=== PATIENT | female | born 1940 | race Caucasian/White ===

== ENCOUNTER 2019-09-21 19:10 | Inpatient (IN) | payer OTHER ==
[~2019-09-21] VITALS: Ht 172.7 cm; Wt 52.2 kg
[2019-09-21] MEDS ORDERED: NORVASC 2.5 MG2.5 M1 PO ×2 (21:55→22:16)
[2019-09-21] MEDS ORDERED: CARBIDOPA-LEVO1 EA10 PO (21:56)
[2019-09-21] MEDS ORDERED: CARBIDOPA-LEVO1 EAC7 PO (21:58)
[2019-09-21] MEDS ORDERED: LEVO-T25 MCG PO (21:59)
[2019-09-21] MEDS ORDERED: RYTARY ER 48.71 EACH PO (21:59)
[2019-09-21] MEDS ORDERED: SEROQUEL 25 MG25 MG PO (22:00)
[2019-09-21 22:44] VITALS: BP 153/92
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
[2019-09-22 08:17] VITALS: BP 176/105
[2019-09-22 09:29] VITALS: BP 176/105
[2019-09-22 11:44] VITALS: BP 176/105
--- NOTE | 2019-09-22 11:50 | NUR ---
This morning the patient was complaining about muscle spams and wanted to lay down in her bed and eat breakfast. I offered to feed her and she refused; Karina also refused her medications until was could lay down. See nursing notes for details. I spoke with Karina and her daughter. The daughter shared with me that when Karina has muscle spams, the best thing for her to do is to lay down. I explained our concern about her eating in bed and the possiblity of choking. I informed the patient and daughter that we are going to get special silverware for her to use to help with eating. I explained that she is hear to treament and needs to participate in groups. We agreed that Albino can lay down inbetween groups. We agreed to be gentle in the morning when getting her out of bed. The daughter will give us "hints" that she uses at home to help with the muscles spams. Dr. Jackson joined us and he supported the above. Please see orders and his notes for details.
--- NOTE | 2019-09-22 12:33 | NUR ---
ASSUMED CARE AT 0700. PATIENT IS ALERT AND ORIENTED X4. PATIENT SPEAKS GAMBIAN AND A SMALL AMOUNT OF PASHTO. LUNGS ARE CLEAR. ABD IS SOFT WITH BSX4. UP TO THE BSC TO VOID WITH ASSIST OF 1 STAFF . PATIENT C/O SPINAL SPASMS THIS AM AND REFUSED TO EAT BREAKFAST OR TAKE MEDS. PATIENT FINALLY AGREED TO TAKE HER AM MEDS. PATIENT WAS BROUGHT OUT TO THE DINING ROOM VIA W/C. DAUGHTER HERE TO SEE PATIENT. MEETING WITH FAMILY AND DIRECTOR CONCERNING HER BEHAVIOR TO WANT TO LIE DOWN ON THE FLOOR IF SHE HAS SPASMS IS UNACCEPTABLE. PATIENT WILL BE ALLOWED TO LIE DOWN IN HER BED. PATIENT UP IN W/C AND IN DINING ROOM FOR LUNCH. NEW SUPPLEMENT STARTED AT LUNCH TIME PER DR. JENKINS. ENCOURAGED PO FLUIDS.
--- NOTE | 2019-09-22 12:46 | NUR ---
VANNESSA called and spoke with pts' dght to completed the intake assessment and TP. Dght reported that her mom's halluciantions have been " exhausting" and while it is not culterally acceptable to sent her mom to a care center, she now sees why they are helpful. She stated that she would consider LTC placement if it was necessary. Pt lives in the home with her daughter and EDMUND. VANNESSA reported on the role of Sw and the expectations of the [facility]. VANNESSA provided her the code and the hours for visitation, and that she could not bring food to the unit. VANNESSA also suggested that she find a psychiatrist and mental health therapist for d/c . Dght stated that she would look for that. VANNESSA set up family meeting for 09/28 at 11:45am.
[2019-09-22 19:32] VITALS: BP 116/66
--- NOTE | 2019-09-22 20:57 | NUR ---
PATIENT GIVEN ATIVAN AND MORPHINE LAST AT 1999. PLACED COOL WASH CLOTH ON FOREHEAD FOR COMFORT. PATIENT STOPPED MOANING. CHECKED ON PATIENT FREQUENTLY. PATIENT KEPT SAYING EMMA. CALLED DAUGHTER EMMA TO LET HER KNOW PATIENT IS WANTING HER AT BEDSIDE. DAUGHTER THANKED ME AND IS ON HER WAY UP. KEEPING CLOSE MICHELE ON PATIENT AND KEEPING HER COMFORTABLE.
[2019-09-22 22:00] VITALS: BP 116/66
--- NOTE | 2019-09-22 23:52 | NUR ---
MOVED PATIENT TO 523A TONIGHT. DAUGHTER HAD REQUESTED PRIVATE ROOM FOR PATIENT AND PATIENT ROOM MATE WAS PLACED ON PALLITIVE CARE. PATIENT VERY UNSTEADY ON HER FEET AFTER 1999 TONIGHT. PARKINSON MEDS GIVEN TO HER AT HS. PATIENT KEEPS WATER BY HER BED TO SIP ON THRU NIGHT. SHE IS VERY HAPPY TO HAVE A ROOM BY HERSELF. BSC BESIDE BED. PATIENT STATES SHE HAD A BM TODAY. SHE DENIES PAIN. SHE IS SLEEPING SOUNDLY AT THIS TIME. BED IN LOW POSITION AND BED ALARM ON. STILL NEED TO COLLECT URINE TO RUN UA. WILL CONTINUE TO MONITOR.
--- NOTE | 2019-09-23 05:25 | NUR ---
PATIENT GOT UP AND CAME TO NURSE'S STATION TO FIND OUT WHAT TIME IT WAS. WALKED PATIENT BACK TO ROOM AND ASSISTED HER TO THE BATHROOM. URINE WAS COLLECTED AT 0510 FOR UA CHECK. SPECIMAN TAKEN TO THE LAB BY THIS NURSE. PATIENT BACK TO BED.
[2019-09-23 06:16] LABS: URINE BILIRUBIN NEGATIVE (Negative); URINE BLOOD NEGATIVE (Negative); URINE CLARITY CLEAR; URINE COLOR YELLOW; URINE GLUCOSE-RANDOM* NEGATIVE (Negative); URINE KETONES NEGATIVE (Negative); URINE LEUKOCYTES-REFLEX NEGATIVE (Negative); URINE NITRITE-REFLEX NEGATIVE (Negative); URINE PROTEIN (DIPSTICK) NEGATIVE (Negative); URINE SPECIFIC GRAVITY >= 1.030 (1.005-1.035); URINE UROBILINOGEN 0.2 E.U./dl (0.2-1.0)
[2019-09-23 09:18] VITALS: BP 127/66
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
--- NOTE | 2019-09-23 13:38 | NUR ---
SW completed a chart review and pt seems to be making gains in mood and behavior. She was seen in the milieu eating today. D/C is expected next week , still evaluating if placement will be necessary.
--- NOTE | 2019-09-23 17:39 | NUR ---
Ambulating around unit with irregular but steady gait. No s/o distress. Alert and orientated X2, language/hearing sometimes a barrier. Denies pain, SI/HI. Breath sounds clear t/o, bilaterally equal. Reg HR auscultated. Color pink with brisk capillary refill and palpable peripheral pulses. Voids independently. Active bowel sounds over soft, flat abdomen. No issues t/o day. Compliant with meds. Requesting book to read. No s/o distress.
[2019-09-23 19:23] VITALS: BP 136/68
--- NOTE | 2019-09-24 03:52 | NUR ---
Pt calm et cooperative this shift. Pt isolating in room most of shift. Pt took meds whole without difficulty. Pt does not frequently socialize with peers due to hearing et language difficulties. All health assessments WNL. No behaviors noted this shift. Pt currently resting in bed with eyes closed. Will continue to monitor per protocol.
[2019-09-24 10:43] VITALS: BP 145/76
--- NOTE | 2019-09-24 11:05 | NUR ---
0645 RESUMMED CARE FROM OVERNIGHT SHIFT, PATIENT UP IN DAY ROOM ATE BREAKFAST TOOK MEDICATION WITHOUT INCIDENCE. PATIENT USES WHEEL CHAIR DUE TO UNSTEADY GAIT. PATIENT DENIES ANY HALLUCINATIONS AT PRESENT, PATIENT SPEAKS SOME SAMI AND UNDERSTANDS SIMPLE COMMANDS. PATIENT CAN USE BESIDE COMMODE WITHOUT ASSISTANCE. WILL CONTINUE TO MONITOR PATIENT FOR BEHAVIORS AND SAFETY.
[2019-09-24 19:59] VITALS: BP 103/63
--- NOTE | 2019-09-25 02:04 | NUR ---
ASSUMED CARE OF PT FROM DAY SHIFT PT WALKING FROM BATHROOM GAIT UNSTEADY, BSC NEXT TO BED, PT VOIDING. PT ANSWERED SIMPLE QUESTION YES AND NO. PO MEDICATON TAKEN WITH SNACK, TOLERATED WELL.FREQ CHECK PER UNIT PROTOCOL. PT APPEARS TO BE RESTING BUT UP TO BSC FREQ TO VOID. CALM COOPERATIVE THIS SHIFT, WILL REPORT CHANGES OR ABNORMAL FINDINGS.
[2019-09-25 08:20] VITALS: BP 151/84
--- NOTE | 2019-09-25 10:17 | NUR ---
Sitting on commode. States her back hurts as she holds her right flank area and ranks it a 2-3 when asked. Alert and orientated X4, denies SI/HI. Ambulates at times with irregular, steady gait. Other times she states she feels weak and requests WC. Independent with eating breakfast and compliant with meds. Breath sounds clear t/o, bilaterally equal. Reg HR auscultated. Color pink with brisk capillary refill and palpable peripheral pulses. No edema noted. Urinating frequently, clean catch urine obtained with hat. Active bowel sounds over soft, flat abdomen. Dr. Jackson notified of flank pain, urinary frequency. UA and BMP ordered and obtained.
[2019-09-25 10:18] LABS: URINE BILIRUBIN NEGATIVE (Negative); URINE BLOOD NEGATIVE (Negative); URINE CLARITY CLEAR; URINE COLOR YELLOW; URINE GLUCOSE-RANDOM* NEGATIVE (Negative); URINE KETONES NEGATIVE (Negative); URINE LEUKOCYTES-REFLEX NEGATIVE (Negative); URINE NITRITE-REFLEX NEGATIVE (Negative); URINE PROTEIN (DIPSTICK) NEGATIVE (Negative); URINE UROBILINOGEN 0.2 E.U./dl (0.2-1.0)
[2019-09-25 10:23] LABS: CALCIUM 9.2 mg/dL (8.5-10.1); CREATININE 0.7 mg/dL (0.6-1.0); POTASSIUM 3.8 mmol/L (3.5-5.1)
[2019-09-25 11:01] VITALS: BP 124/63
[2019-09-25 19:23] VITALS: BP 145/84
--- NOTE | 2019-09-26 02:22 | NUR ---
ASSUMED CARE FROM DAY SHIFT PT RESTING IN BED, NO CONCERNS VOICED , UP TO BSC VOIDING, PO MEDICATION WITHOUT ISSUES, ATE HS SNACK TOLERATED WELL. GAIT STEADY WHEN UP TO BSC. PT RESTING QUIETLY THROUGHOUT FREQ ROUNDING. BED ALARM ON FOR SAFETY. WILL CONINTUE WITH CURRENT PLAN OF CARE, AND WILL REPORT CHANGES OR ABNORMAL FINDINGS.
[2019-09-26 07:49] VITALS: BP 144/81
--- NOTE | 2019-09-26 07:55 | NUR ---
ASSUMED CARE OF PT AT 0715. PT IS ALERT. UNABLE TO ASSESS ORIENTEDNESS. PT DOES NOT ANSWER QUESTIONS WHEN ASKED, BUT FOLLOWS COMMANDS. FALL PRECAUTIONS & FREQUENT MONITORING CONTINUED THIS SHIFT. PT IS STABLE. IS CURRENTLY SITTING IN DINNING ROOM AWAITING BREAKFAST. LABS & VITALS REVIEWED. WILL CONTINUE TO MONITOR.
[2019-09-26 19:39] VITALS: BP 162/92
--- NOTE | 2019-09-27 03:22 | NUR ---
Assumed care of pt @ 1900. Pt took meds whole without difficulty. Pt ambulates halls ad elizabeth with slightly unsteady gait. Pt currently on fall precautions. VSWNL. No behaviors noted this shift. Pt awakened during the night yelling out for "Mama". Pt was hard to awaken, but eventually calmed down and is currently resting in bed with eyes closed. Will continue to monitor per protocol.
[2019-09-27 07:58] VITALS: BP 177/91
[2019-09-27 08:10] VITALS: BP 148/84
--- NOTE | 2019-09-27 08:25 | NUR ---
VANNESSA completed a chart review and a note left by jill HURD that pt's dght might be seeking placement. VANNESSA called dght but she is a clinic procedure today and will be coming in for a family meeting tomorrow at 11:45am. Per notes VANNESSA will identify and set up an oupt appt with her neurologist, and rehab if needed.
--- NOTE | 2019-09-27 12:37 | NUR ---
SW left another Vm reporting that d/c will be tomorrow, and that a neurologist and psych appts need to be set up. VANNESSA also asked about the services they receive from whole persons and that there is still a family meeting on Friday at 11:45am. pt does not qualify for rehab, and does not have insurance for HH.
--- NOTE | 2019-09-27 13:47 | NUR ---
Pt has a neurology appt with Dr Tonia Lewis at [facility] on 11/30/19. [phone]. (f) [phone]. Pt does not have a psychiatrist. Will provide a referral to Dr Wooten if needed. [phone].
--- NOTE | 2019-09-27 15:46 | NUR ---
ASSUMED PT CARE AT 0715. ALERT TO SELF AND SURROUNDING. TRANSFERS WITH UNSTEADY GAIT. USING W/C. HAS HAD NO BEHAVIORS NOTED TODAY. REFUSED TO GO TO BREAKFAST THIS AM. WILL CONT POC.
--- NOTE | 2019-09-27 16:32 | NUR ---
VANNESSA met with pts' dght and confirmed the d/c for tomorrow at noon. Meds to be called into [facility] on [address] Pt has an appt with Dr Lewis 11/30/19 at 2pm. [phone]. Sw will fax d/c orders and summary to [phone]. SW also started referral for Dr Haji. [facility] [address] [phone]
[2019-09-27 16:36] VITALS: BP 148/84
[2019-09-27 19:40] VITALS: BP 109/61
--- NOTE | 2019-09-28 04:12 | NUR ---
Assumed care of pt @ 1900. Pt calm et cooperative this shift. Pt ambulates halls ad elizabeth but currently presents with weakened et unsteady gait. VSWNL. Pt took meds whole without difficulty. Assessment done et reveals no abnormalities at present time. No behaviors noted. Currently resting in bed with eyes closed. Will continue to monitor per protocol.
[2019-09-28 07:51] VITALS: BP 136/76
--- NOTE | 2019-09-28 08:56 | NUR ---
PT TOOK MEDS AFTER BREAKFAST. PT IN HER ROOM. PT TOOK MEDS ONE-BY-ONE. PT WORRIED ABOUT HER PERSONAL BELONGINGS FROM ANOTHER PT TAKING HER STUFF. PT KNOWS ABOUT HEARING AID NEEDS TO BE OPEN WHEN NOT IN USE. PT HAS TREMORS TO LEFT HAND AND TWITCH TO RT EYE. PT ABLE TO WALK SOME DAYS AND NEEDS ASSISTANCE WITH W/C. PT KNOWS ABOUT GOING HOME TODAY.
[2019-09-28 09:30] VITALS: BP 136/76
--- NOTE | 2019-09-28 09:56 | NUR ---
MARTELL made a second call to Dr Haji's office to set up an appointment. Martell will provide pt [facility] handout for family to walk in this week to [facility]
--- NOTE | 2019-09-28 11:41 | NUR ---
MARTELL faxed d/c summary and orders to Dr Lewis at [facility] [phone]. Martell provided pt's dght with a handout that included the walk in times and place for [facility]. Appt will be in the next 7 days.
--- NOTE | 2019-09-28 11:55 | NUR ---
PT FAMILY HERE FOR DISCHARGE. PT DRESSED AND READY TO GO.
[2019-09-28] MEDS ORDERED: LIORESAL 10 MG10 MG PO (12:18)
[2019-09-28] MEDS ORDERED: BANOPHEN25 M1 PO (12:19)
[2019-09-28] MEDS ORDERED: SINEMET CR 25-1 EACH PO (12:20)
[2019-09-28] MEDS ORDERED: SEROQUEL 50 MG50 MG PO (12:20)
[2019-09-28] MEDS ORDERED: COLACE 100 MG100 MG PO (12:21)
[2019-09-28] MEDS ORDERED: PEPCID20 MG PO (12:22)
[2019-09-28] MEDS ORDERED: SYNTHROID25 MC1 PO (12:22)
--- NOTE | 2019-09-28 12:30 | NUR ---
WENT OVER PAPERWORK WITH DAUGHTER. SHE VERBALY UNDERSTOOD D/C ORDERS.
--- NOTE | 2019-09-28 12:32 | NUR ---
Martell met with [facility] prior to d/c and Martell reported on the [facility] walk in, and a list of Medicaid LTC and the process to be admitted from home. MARTELL faxed the d/c summary and orders to Dr Lewis
--- NOTE | 2019-09-28 12:40 | NUR ---
PT LEFT VIA W/C TO DAUGHTER CAR ACCOMPANIED BY STAFF. PT ASSISTED TO CAR AND SEAT BELT PLACED ON HER.
--- NOTE | 2019-09-30 20:07 | D ---
[facility] [place] [address] DISCHARGE SUMMARY Name: GIANCARLO CHAPPELL Room #: 523A[facility] M.R.#: [id number] Admission: 09/21/19 Attend Phys: Jj Sampson DO Discharge: 09/28/19 Date of : 42 Report #: [id number] THIS REPORT FOR: //name// CC: Jj Pederson DATE OF SERVICE: 09/28/2019 INPATIENT PSYCHIATRIC DISCHARGE SUMMARY ATTENDING PHYSICIAN: Jj Sampson DO. VOLUMETRIC WEIGHER: Gerald Jackson MD. DISCHARGE DIAGNOSES: Parkinson disease, psychosis, likely major neurocognitive disorder due to Parkinson's disease. Medical comorbidities include hypertension, recent UTI, constipation, hypothyroidism, general debility, and deconditioning. DISCHARGE PLAN: She is discharging to her daughter, [place]'s home, the patient's aftercare, she will need [facility] an intake. Also, her neurologist is Dr. Lewis at the [facility], discharge summary and medication changes are faxed to that physician. Given the patient's cultural and language barriers, I do not think psychotherapy will be that practical; however, there may be some issues for case management committee of psychiatric nurse intervention. DIET: Regular with a mechanical chopped consistency. DISCHARGE MEDICATIONS: Benadryl 25 mg 3 times a day for tremor and shortness of breath. Baclofen, the daughter did not want her to continue. Main antipsychotic is quetiapine fumarate 50 mg p.o. [id number]. Carbidopa/levodopa 25/100 two tabs p.o. 2 tabs p.o. [id number]. Docusate sodium 100 mg p.o. b.i.d. Famotidine 20 mg p.o. daily. Levothyroxine 125 mcg p.o. daily. Amlodipine 2.5 mg p.o. daily. The patient's activity level is as tolerated. She is a high fall risk and is recommended to use a walker with min assist. REASON FOR ADMISSION: Back on 09/21/2019, the patient was transferred from [facility] due to having hallucinations. HOSPITAL COURSE: The patient was admitted to Geriatric Psychiatry Unit. Initially, it was difficult to communicate with the patient and her daughter and [place]uvian telephone bounty hunter was used. There was some concern if she had Parkinson's disease in actuality. Dr. Pickering who was a oracle fusion consultant from [address] [address] DISCHARGE SUMMARY Name: GIANCARLO CHAPPELL Room #: 52-A [facility]#: [id number] Admission: 09/21/19 Attend Phys: Jj Sampson DO Discharge: 09/28/19 Date of : 42 Report #: [id number] Neurology, he did believe the patient had a left lower body parkinsonism with a left body tremor. We elected to change her to CR formulation 3 times a day of Sinemet. The patient was able to feed herself okay with her right hand. There was a fair amount of psychoeducation done with the daughter. The daughter said it was [facility] the [facility] in a halfway. I think this will be a substantial care burden for the daughter, but again she and the patient declined placement. Condition on the day of discharge was not suicidal or homicidal. Positive mood. LABORATORY DATA: Urinalysis on 09/25/2019 was negative. Chemistries that were done on the 09/25/2019 as well showed a slightly increased glucose at 125, BUN of 30, anion gap of 5. PHYSICAL EXAM: GENERAL: left sised body tremor. MENTAL STATUS EXAMINATION: This is a well-developed, appearing undernourished female of [employer] descent. Attention is limited. Concentration is limited. Speech is normal rate. Thought process is linear and limited. Thought content is focused on discharge. No psychomotor retardation. No psychomotor agitation. Normal movements visible. The insight is limited. Judgment is limited. Fund of knowledge is above average. 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 PROGNOSIS: For this patient is guarded given her age, Parkinson's disease. <ELECTRONICALLY SIGNED> By: Jj Sampson DO 09/30/192006 [id number] Jj Sampson DO /nt
== END 2019-09-28 13:02 | disposition home or self-care (01) | DRG 56 ==
LOC: SBH
PROVIDERS: Internal Medicine; Nurse Practitioner; ADMIT Psychiatry & Neurology Psychiatry
DX: G20 Parkinson's disease (principal); E43 Unspecified severe protein-calorie malnutrition; F02.81 Dementia in other diseases classified elsewhere, unspecified severity, with behavioral disturbance; F01.51 Vascular dementia, unspecified severity, with behavioral disturbance; N39.0 Urinary tract infection, site not specified; Z68.1 Body mass index [BMI] 19.9 or less, adult; F29 Unspecified psychosis not due to a substance or known physiological condition; I10 Essential (primary) hypertension; K59.00 Constipation, unspecified; E03.9 Hypothyroidism, unspecified; R53.81 Other malaise; M19.90 Unspecified osteoarthritis, unspecified site; G47.00 Insomnia, unspecified; M62.838 Other muscle spasm; Z87.891 Personal history of nicotine dependence; Z82.49 Family history of ischemic heart disease and other diseases of the circulatory system
CPT/HCPCS: 10880